=== PATIENT | female | born 1950 | race African-American/Black ===

== ENCOUNTER 2019-07-23 22:20 | Emergency (ER) | payer MEDICARE, MEDICAID ==
[~2019-07-23] VITALS: Ht 157.5 cm; Wt 111.0 kg
[~2019-07-23 22:20] MED LIST: ASPI-1160 PO; CALC-1232 PO; DIXL5 PO; DOCU-138 PO; GABA100C PO; LISI10TA5 PO; OMEP20CA5 PO; VERA240T14 PO
[2019-07-24] MEDS ORDERED: KETOROLAC 30MG/ML VIAL IV STA (00:50)
[2019-07-24] MEDS ORDERED: ONDANSETRON HCL 4MG/2ML INJ IV STA (00:50)
[2019-07-24] MEDS ORDERED: SODIUM CHLORIDE 0.9% 1,000 ML IV ONE (00:50)
[2019-07-24 01:29] LABS: HEMATOCRIT. 38.7 % (36.0-48.0); HEMOGLOBIN. 12.6 g/dL (12.0-16.0); MEAN CORPUSCULAR HEMOGLOBIN 27.8 pg (28.0-32.0); MEAN CORPUSCULAR VOLUME 85.7 fL (81.0-99.0); MEAN PLATELET VOLUME 7.4 fl (7.4-10.4); PLATELET 202 x1000/uL (130-400); RED BLOOD CELL COUNT 4.52 mill/uL (4.2-5.4); RED CELL DISTRIBUTION WIDTH 16.3 % (11.6-14.6)
[2019-07-24 01:32] LABS: CHLORIDE 106 mEq/L (98-107)
[2019-07-24 01:36] LABS: ETHANOL BLOOD < 10 mg/dL
[2019-07-24 03:57] LABS: CLARITY URINE CLEAR (CLEAR); COLOR URINE YELLOW (YELLOW); KETONES URINE NEGATIVE (NEGATIVE); LEUKOCYTE ESTERASE URINE NEGATIVE (NEGATIVE); NITRITE URINE NEGATIVE (NEGATIVE); OCCULT BLOOD URINE NEGATIVE (NEGATIVE); PROTEIN URINE NEGATIVE (NEGATIVE); SPECIFIC GRAVITY URINE 1.003 (1.005-1.030); UROBILINOGEN URINE 0.2 E.U./dL (0.2-1.0)
[2019-07-24] MEDS ORDERED: ACETAMINOPHEN 325MG TABLET PO STA (04:27)
[2019-07-24 04:38] LABS: PLATELET ESTIMATE NORMAL
[2019-07-24 05:35] VITALS: BP 147/81
== END 2019-07-24 06:35 | disposition home or self-care (01) ==
LOC: ER 07-24 01:18
DX: R51 Headache (principal); M79.18 Myalgia, other site; J11.1 Influenza due to unidentified influenza virus with other respiratory manifestations; I10 Essential (primary) hypertension; Z98.890 Other specified postprocedural states; Z79.82 Long term (current) use of aspirin; Z88.2 Allergy status to sulfonamides; Z79.899 Other long term (current) drug therapy
CPT/HCPCS: 36415; 71045; 80053; 80320; 81003; 84484; 85025; 87804; 93005; 96374; 96375; 99284; J1885; J2405; J7030; G0480

== ENCOUNTER → 2022-02-18 | Day surgery (SDC) | payer MEDICARE, MEDICAID ==
[~2022-02-18] VITALS: Ht 157.5 cm; Wt 116.6 kg
[~2022-02-18] MED LIST changes: +ATOR40TA70 PO; +BALANCED SALT IRRIG SOLN 15ML ONE; +BALANCED SALT IRRIG SOLN COMB1 500ML OP NR; +CIPROFLOXACIN 0.3% OPHTH SOLN 2.5ML ONE; +CYCLOPENTOLATE HCL 1% OPHTH DROPS 2ML LEFTEYE NR; +CYCLOPENTOLATE HCL 1% OPHTH DROPS 2ML ONE; +FENTANYL CITRATE/PF 50MCG/ML 2ML VIAL ONE; +GABA-532 PO; -GABA100C PO; +HYALURONATE SODIUM 10 MG/ML 0.55ML SYRINGE IO ONE; +HYDRALAZINE 20MG/ML VIAL ONE; +IBUP-2030 PO; +LACTATED RINGERS 1,000 ML IV SCH; +LIDOCAINE HCL/PF 2% 20 MG/ML 10ML VIAL ONE; +LISI10TA26 PO; -LISI10TA5 PO; +MIDAZOLAM HCL 2 MG/2 ML VIAL ONE; +OMEP20CA14 PO; -OMEP20CA5 PO; +PHENYLEPHRINE HCL 10% OPHTH DROPS 5ML LEFTEYE NR; +PHENYLEPHRINE HCL 10% OPHTH DROPS 5ML ONE; +PREDNISOLONE ACETATE 1% OPHTH DROPS 5ML ONE; +TETRACAINE 0.5% OPHTH DROPS 4ML ONE; +TROPICAMIDE 1% OPHTH DROPS 15ML LEFTEYE NR; +TROPICAMIDE 1% OPHTH DROPS 15ML ONE; +VERA120T23 PO; -VERA240T14 PO
== END | disposition home or self-care (01) ==
LOC: OR 07:05
PROVIDERS: ATTEND Ophthalmology
DX: H25.89 Other age-related cataract (principal); I10 Essential (primary) hypertension; E78.00 Pure hypercholesterolemia, unspecified; Z85.3 Personal history of malignant neoplasm of breast; Z79.899 Other long term (current) drug therapy; Z98.890 Other specified postprocedural states; Z20.822 Contact with and (suspected) exposure to COVID-19
CPT/HCPCS: 66984; 87426; C1893; C9803; J0360; J2250; J3010; J3490; V2632

== ENCOUNTER 2022-12-29 22:36 | Inpatient (IN) | payer MEDICARE, MEDICAID ==
[~2022-12-29] VITALS: Ht 157.5 cm; Wt 111.6 kg
[~2022-12-29 22:36] MED LIST changes: -BALANCED SALT IRRIG SOLN 15ML ONE; -BALANCED SALT IRRIG SOLN COMB1 500ML OP NR; -CIPROFLOXACIN 0.3% OPHTH SOLN 2.5ML ONE; -CYCLOPENTOLATE HCL 1% OPHTH DROPS 2ML LEFTEYE NR; -CYCLOPENTOLATE HCL 1% OPHTH DROPS 2ML ONE; -FENTANYL CITRATE/PF 50MCG/ML 2ML VIAL ONE; -HYALURONATE SODIUM 10 MG/ML 0.55ML SYRINGE IO ONE; -HYDRALAZINE 20MG/ML VIAL ONE; -LACTATED RINGERS 1,000 ML IV SCH; -LIDOCAINE HCL/PF 2% 20 MG/ML 10ML VIAL ONE; -MIDAZOLAM HCL 2 MG/2 ML VIAL ONE; -PHENYLEPHRINE HCL 10% OPHTH DROPS 5ML LEFTEYE NR; -PHENYLEPHRINE HCL 10% OPHTH DROPS 5ML ONE; -PREDNISOLONE ACETATE 1% OPHTH DROPS 5ML ONE; -TETRACAINE 0.5% OPHTH DROPS 4ML ONE; -TROPICAMIDE 1% OPHTH DROPS 15ML LEFTEYE NR; -TROPICAMIDE 1% OPHTH DROPS 15ML ONE
[2022-12-30] MEDS ORDERED: ONDANSETRON HCL 4MG/2ML INJ IV STA (00:04)
[2022-12-30] MEDS ORDERED: MORPHINE SULFATE 4 MG/ML CPJ (NOT FOR IM USE) IV STA (00:04)
[2022-12-30] MEDS ORDERED: SODIUM CHLORIDE 0.9% 1,000 ML IV ONE (00:15)
[2022-12-30 02:57] LABS: BASOPHILS % 0.2 % (0.0-2.0); EOSINOPHILS % 0.1 % (0.0-5.0); HEMATOCRIT. 39.8 % (36.0-48.0); HEMOGLOBIN. 13.3 g/dL (12.0-16.0); LYMPHOCYTES % 11.7 % (20.0-50.0); MEAN CORPUSCULAR VOLUME 83.7 fL (81.0-99.0); MEAN PLATELET VOLUME 7.4 fl (7.4-10.4); MONOCYTES % 6.5 % (2.0-8.0); NEUTROPHILS % 81.5 % (40.0-76.0); PLATELET 257 x1000/uL (130-400); RED BLOOD CELL COUNT 4.76 mill/uL (4.2-5.4); RED CELL DISTRIBUTION WIDTH 16.3 % (11.6-14.6)
[2022-12-30 03:10] LABS: CHLORIDE 106 mEq/L (98-107)
[2022-12-30] MEDS ORDERED: ASPIRIN 325MG TABLET PO ONE (04:15)
[2022-12-30] MEDS ORDERED: MAGNESIUM/ALUMINUM HYDROXIDE/SIMETHICONE 30ML UDC PO PRN (05:30)
[2022-12-30] MEDS ORDERED: ONDANSETRON HCL 4MG/2ML INJ IV PRN (05:30)
[2022-12-30] MEDS ORDERED: IPRATROPIUM/ALBUTEROL 0.5-3(2.5)MG/3ML NEB HHN PRN (05:30)
[2022-12-30] MEDS ORDERED: ACETAMINOPHEN 325MG TABLET PO PRN ×2 (05:30)
[2022-12-30] MEDS ORDERED: HYDROCODONE/ACETAMINOPHEN 5/325MG TABLET PO PRN (05:30)
[2022-12-30] MEDS ORDERED: DOCUSATE SODIUM 100MG CAPSULE PO PRN (05:30)
[2022-12-30] MEDS ORDERED: GUAIFENESIN 200MG/10ML SUGAR FREE UDC PO PRN (05:30)
[2022-12-30] MEDS ORDERED: CLONIDINE 0.1MG TABLET PO PRN (05:30)
[2022-12-30] MEDS ORDERED: ASPIRIN 325MG TABLET PO NR (06:00)
[2022-12-30] MEDS ORDERED: NALOXONE HCL 0.4MG/ML VIAL IV PRN (06:15)
[2022-12-30 08:32] LABS: CHLORIDE 106 mEq/L (98-107)
[2022-12-30 08:34] LABS: INR 1.1; PROTHROMBIN TIME 11.3 sec (9.6-11.0)
[2022-12-30 08:43] LABS: CREATINE KINASE 101 IU/L (26-192); PHOSPHORUS 3.5 mg/dL (2.5-4.9)
[2022-12-30] MEDS ORDERED: ENOXAPARIN 150MG/ML SYR SUBCUT NR (09:00)
[2022-12-30] MEDS ORDERED: ENOXAPARIN 40MG/0.4ML SYR SUBCUT SCH (09:00)
[2022-12-30 10:00] VITALS: BP 135/77
[2022-12-30 12:00] VITALS: BP 124/72
[2022-12-30 14:00] VITALS: BP 124/81
[2022-12-30 16:00] VITALS: BP 126/69
[2022-12-30] MEDS: OMEPRAZOLE 20MG CAPSULE EXTENDED RELEASE PO SCH (16:03)
[2022-12-30] MEDS: GABAPENTIN 300MG CAPSULE PO SCH ×2 (16:03→17:00)
[2022-12-30] MEDS: LISINOPRIL 10MG TABLET PO SCH (16:03)
[2022-12-30 17:19] LABS: CREATINE KINASE 95 IU/L (26-192)
[2022-12-30] MEDS: ATORVASTATIN CALCIUM 40MG TABLET PO SCH (17:40)
[2022-12-30 20:00] VITALS: BP 94/64
[2022-12-30] MEDS ORDERED: IPRATROPIUM BROMIDE (0.02%) 0.5MG/2.5ML NEB HHN PRN (20:30)
[2022-12-30] MEDS ORDERED: ALBUTEROL (0.083%) 2.5MG/3ML NEB HHN PRN (20:30)
[2022-12-30] MEDS ORDERED: IOHEXOL-350 100 ML BOTTLE ONE (21:36)
[2022-12-30 21:40] LABS: CLARITY URINE CLEAR (CLEAR); COLOR URINE YELLOW (YELLOW); KETONES URINE TRACE (NEGATIVE); LEUKOCYTE ESTERASE URINE TRACE (NEGATIVE); NITRITE URINE POSITIVE (NEGATIVE); OCCULT BLOOD URINE 2+ (NEGATIVE); PROTEIN URINE NEGATIVE (NEGATIVE); SPECIFIC GRAVITY URINE 1.014 (1.005-1.030)
[2022-12-30 21:55] LABS: *AMPHETAMINES SCREEN URINE NEGATIVE (NEGATIVE); *BARBITURATES SCREEN URINE NEGATIVE (NEGATIVE); *BENZODIAZEPINES SCREEN URINE NEGATIVE (NEGATIVE); *COCAINE SCREEN URINE NEGATIVE (NEGATIVE); CANNABINOID URINE SCREEN NEGATIVE (NEGATIVE); METHADONE URINE SCREEN NEGATIVE (NEGATIVE); OPIATES URINE SCREEN NEGATIVE (NEGATIVE); PHENCYCLIDINE URINE SCREEN NEGATIVE (NEGATIVE)
[2022-12-31] VITALS: BP 123/81
[2022-12-31 04:00] VITALS: BP_SYST 113; BP_SYST 126; BP_DIAS 71; BP_DIAS 83
[2022-12-31] MEDS ORDERED: ENOXAPARIN 150MG/ML SYR SUBCUT SCH (06:00)
[2022-12-31 07:22] LABS: BASOPHILS % 0.2 % (0.0-2.0); EOSINOPHILS % 1.2 % (0.0-5.0); HEMOGLOBIN. 11.8 g/dL (12.0-16.0); LYMPHOCYTES % 33.9 % (20.0-50.0); MEAN CORPUSCULAR HEMOGLOBIN 28.3 pg (28.0-32.0); MEAN CORPUSCULAR VOLUME 83.7 fL (81.0-99.0); MEAN PLATELET VOLUME 7.5 fl (7.4-10.4); MONOCYTES % 10.5 % (2.0-8.0); NEUTROPHILS % 54.2 % (40.0-76.0); PLATELET 252 x1000/uL (130-400); RED BLOOD CELL COUNT 4.17 mill/uL (4.2-5.4); RED CELL DISTRIBUTION WIDTH 16.2 % (11.6-14.6)
[2022-12-31 08:00] VITALS: BP 113/71
[2022-12-31 08:14] LABS: CREATINE KINASE MB FRACTION 1.6 ng/mL (0.5-3.6); T4 FREE 0.93 ng/dL (0.76-1.46)
[2022-12-31] MEDS ORDERED: ASPIRIN 81MG EC TABLET PO SCH (09:00)
[2022-12-31] MEDS: OMEPRAZOLE 20MG CAPSULE EXTENDED RELEASE PO SCH (09:47)
[2022-12-31] MEDS: GABAPENTIN 300MG CAPSULE PO SCH ×2 (09:47→17:52)
[2022-12-31] MEDS: LISINOPRIL 10MG TABLET PO SCH (11:06)
[2022-12-31 12:00] VITALS: BP 119/60
[2022-12-31 16:00] VITALS: BP 115/79
[2022-12-31 17:00] LABS: CREATINE KINASE MB FRACTION 1.1 ng/mL (0.5-3.6)
[2022-12-31] MEDS: ENOXAPARIN 120MG/0.8ML SYR SUBCUT SCH (17:52)
[2022-12-31] MEDS: ATORVASTATIN CALCIUM 40MG TABLET PO SCH (17:52)
[2022-12-31 20:00] VITALS: BP 106/62
[2023-01-01] VITALS: BP 119/71
[2023-01-01 04:00] VITALS: BP 123/76
[2023-01-01] MEDS: ENOXAPARIN 120MG/0.8ML SYR SUBCUT SCH ×2 (06:30→17:34)
[2023-01-01 08:00] VITALS: BP 132/74
[2023-01-01] MEDS: GABAPENTIN 300MG CAPSULE PO SCH ×2 (08:21→17:02)
[2023-01-01] MEDS: OMEPRAZOLE 20MG CAPSULE EXTENDED RELEASE PO SCH (08:21)
[2023-01-01] MEDS: LISINOPRIL 10MG TABLET PO SCH (08:21)
[2023-01-01 12:00] VITALS: BP_SYST 102; BP_SYST 137; BP_DIAS 77; BP_DIAS 79
[2023-01-01 16:00] VITALS: BP 127/78
[2023-01-01] MEDS: ATORVASTATIN CALCIUM 40MG TABLET PO SCH (17:02)
[2023-01-01 20:00] VITALS: BP 131/69
[2023-01-02] VITALS (7 sets, daily range): BP systolic 109–159; BP diastolic 59–82
[2023-01-02] MEDS: ENOXAPARIN 120MG/0.8ML SYR SUBCUT SCH (05:35)
[2023-01-02] MEDS: OMEPRAZOLE 20MG CAPSULE EXTENDED RELEASE PO SCH (08:33)
[2023-01-02] MEDS: GABAPENTIN 300MG CAPSULE PO SCH (08:33)
[2023-01-02] MEDS: LISINOPRIL 10MG TABLET PO SCH (08:37)
[2023-01-02] MEDS ORDERED: XAR15 MT (10:16)
== END 2023-01-02 19:03 | disposition home health service (06) | DRG 175 ==
LOC: ER 22:48 → 7WST 12-30 04:13 → EDBEDREQ 12-30 04:20 → EDBEDREQSVC 12-30 04:20 → EDBEDREQTM 12-30 04:20 → SUPCPDRO 12-30 06:55
PROVIDERS: ADMIT Internal Medicine; ATTEND Internal Medicine
DX: I26.99 Other pulmonary embolism without acute cor pulmonale (principal); I21.4 Non-ST elevation (NSTEMI) myocardial infarction; I50.30 Unspecified diastolic (congestive) heart failure; G90.8 Other disorders of autonomic nervous system; I11.0 Hypertensive heart disease with heart failure; Z20.822 Contact with and (suspected) exposure to COVID-19; M19.90 Unspecified osteoarthritis, unspecified site; R32 Unspecified urinary incontinence; I27.81 Cor pulmonale (chronic); Z85.3 Personal history of malignant neoplasm of breast; Z88.2 Allergy status to sulfonamides
CPT/HCPCS: 36415; 71045; 71275; 72128; 72131; 73502; 80048; 80053; 80061; 80305; 81003; 82550; 82553; 83605; 83735; 83880; 84100; 84439; 84443; 84484; 85025; 85379; 86850; 86900; 87426; 93005; 93306; 93880; 93970; 97116; 97162; 97166; 97530; 97535; 99291; J1650; J7030; Q9967; A4315

== ENCOUNTER 2023-10-25 03:03 | Emergency (ER) | payer MEDICARE, MEDICAID ==
[~2023-10-25] VITALS: Ht 167.6 cm; Wt 116.0 kg
[~2023-10-25 03:03] MED LIST changes: -IBUP-2030 PO; -VERA120T23 PO; +XAR15 MT
[2023-10-25 03:06] VITALS: O2SAT 98
[2023-10-25 03:45] LABS: BASOPHILS % 0.4 % (0.0-2.0); EOSINOPHILS % 0.3 % (0.0-5.0); HEMATOCRIT. 42.3 % (36.0-48.0); HEMOGLOBIN. 13.6 g/dL (12.0-16.0); LYMPHOCYTES % 25.5 % (20.0-50.0); MEAN CORPUSCULAR HEMOGLOBIN 27.9 pg (28.0-32.0); MEAN CORPUSCULAR HGB CONC 32.2 g/dL (31.0-37.0); MEAN CORPUSCULAR VOLUME 86.6 fL (81.0-99.0); MONOCYTES % 5.3 % (2.0-8.0); NEUTROPHILS % 68.5 % (40.0-76.0); PLATELET 360 x1000/uL (130-400); RED BLOOD CELL COUNT 4.89 mill/uL (4.2-5.4); RED CELL DISTRIBUTION WIDTH 16.9 % (11.6-14.6); WHITE BLOOD COUNT 7.6 x1000/uL (4.5-11.0)
[2023-10-25 04:15] LABS: ALANINE AMINOTRANSFERASE 28 IU/L (10-49); ALBUMIN 4.1 g/dL (3.2-4.8); ASPARTATE AMINOTRANSFERASE 24 IU/L (<34); BILIRUBIN TOTAL 0.4 mg/dL (0.1-1.0); CALCIUM 8.8 mg/dL (8.7-10.4); CARBON DIOXIDE 23 mEq/L (21-32); CHLORIDE 106 mEq/L (98-107); CREATININE 0.8 mg/dL (0.6-1.0); GLUCOSE 94 mg/dL (70-105); PROTEIN TOTAL 7.8 g/dL (6.0-8.3); SODIUM 140 mEq/L (136-145); UREA NITROGEN BLOOD 14 mg/dL (9-23)
[2023-10-25 10:31] VITALS: BP 129/71; PULSE 81; RESP 19
== END 2023-10-25 10:32 | disposition home or self-care (01) ==
LOC: ER 03:03
DX: D25.9 Leiomyoma of uterus, unspecified (principal); M19.90 Unspecified osteoarthritis, unspecified site; I10 Essential (primary) hypertension; Z88.2 Allergy status to sulfonamides; Z88.8 Allergy status to other drugs, medicaments and biological substances
CPT/HCPCS: 36415; 76830; 76856; 80053; 85025; 86850; 86900; 99285